=== PATIENT | female | born 1975 | race Caucasian/White ===

== ENCOUNTER 2021-04-13 23:57 | Emergency (ER) | payer OTHER ==
[~2021-04-13] VITALS: Ht 157.5 cm; Wt 75.0 kg
--- NOTE | 2021-04-14 00:18 | PHYS DOC ---
Past History Past Medical History: Anxiety, Depression (PRAFUL VALENCIA MD) General Adult EDM: Chief Complaint: ANXIETY/PANIC ATTACK HPI: HPI: Patient is a 45-year-old female who presents to the emergency department today for an anxiety attack that occurred this evening. Patient reports that her sons got into a verbal argument and that started causing her to panic. Patient reports that she felt very panicked and was hyperventilating and then started having tingling in her hands and cramping of her left hand. Patient reports that she does not take anything for anxiety at home. Patient currently takes methadone for opioid abuse. (JUANA GROVES APRN) HPI: .. " I am having some .. anxiety..."" My too sons were arguing of each other than this caused by a lot of anxiety..." Ms. lakesha Barnes is a 45-year-old female that presents to the emergency department with complaints of anxiety and hyperventilating. Patient came anxious but her 2 sons were argued of each other. Patient symptoms have resolved in the emergency department shortly after arrival. Refused ABG. Refused further work-up. Patient is a discharge home with follow-up with primary care. (PRAFUL VALENCIA MD) Review of Systems: Review of Systems: Constitutional: negative unless reported in HPI Eyes: negative unless reported in HPI HENT: negative unless reported in HPI Respiratory: negative unless reported in HPI Cardiovascular: negative unless reported in HPI GI: negative unless reported in HPI : negative unless reported in HPI Musculoskeletal: negative unless reported in HPI Integument: negative unless reported in HPI Neurologic: negative unless reported in HPI Endocrine: negative unless reported in HPI Lymphatic: negative unless reported in HPI Psychiatric: negative unless reported in HPI (JUANA GROVES APRN) Review of Systems: Review of systems negative except for episode of hand cramping and dyspnea (PRAFUL VALENCIA MD) Family History: Family History: Noncontributory (PRAFUL VALENCIA MD) Current Medications: Current Meds: See nursing for home meds (PRAFUL VALENCIA MD) Allergies: Allergies: No known drug allergies (PRAFUL VALENCIA MD) Physical Exam: PE: Constitutional: Well developed, well nourished, no acute distress, non-toxic appearance. [] HENT: Normocephalic, atraumatic, bilateral external ears normal, oropharynx moist, no oral exudates, nose normal. [] Eyes: PERRL, EOMI, conjunctiva normal, no discharge. [] Neck: Normal range of motion, no stridor Cardiovascular: Normal peripheral perfusion Lungs & Thorax: Bilateral breath sounds clear to auscultation, tachypneic [] Abdomen: Soft and flat Skin: Warm, dry, no erythema, no rash. [] Back: Normal range of motion Extremities: No tenderness, no cyanosis, no clubbing, ROM intact, no edema. []. Cramping sensation in left hand neuro intact Neurologic: Alert and oriented X 3, normal motor function, normal sensory function, no focal deficits noted. [] Psychologic: Anxious (JUANA GROVES APRN) PE: As per nurse practitioner (PRAFUL VALENCIA MD) EKG: EKG: [] (JUANA GROVES APRN) Radiology/Procedures: Radiology/Procedures: [] (JUANA GROVES APRN) Heart Score: C/O Chest Pain: N/A Risk Factors: Risk Factors: DM, Current or recent (<one month) smoker, HTN, HLP, family history of CAD, obesity. Risk Scores: Score 0 - 3: 2.5% MACE over next 6 weeks - Discharge Home Score 4 - 6: 20.3% MACE over next 6 weeks - Admit for Clinical Observation Score 7 - 10: 72.7% MACE over next 6 weeks - Early Invasive Strategies (JUANA GROVES APRN) Course & Med Decision Making: Course & Med Decision Making Pertinent Labs and Imaging studies reviewed. (See chart for details) Patient presents to the emergency department for an anxiety attack. Patient does not take anything at home for anxiety but reports that she started feeling anxious and panicked and hyperventilating after her sons got into a verbal argument. Patient was treated with Ativan. She refused ABG. Patient reports improvement in her symptoms following treatment. Physician involved in patient care. I discussed with patient all findings as well as the need to follow-up with PCP for further evaluation and treatment or return to the ER if any new or worsening symptoms. Strict return precautions were also discussed at length. Patient voiced understanding and agreement with the plan. Patient is hemodynamically stable at the time of disposition. (JUANA GROVES APRN) Course & Med Decision Making Patient encouraged a similar safe. Patient to follow-up primary care. Patient return if any concerns. Impression: 1. Anxiety and panic attack 2. Hyperventilation (PRAFUL VALENCIA MD) Dragon Disclaimer: Dragon Disclaimer: This electronic medical record was generated, in whole or in part, using a voice recognition dictation system. (JUANA GROVES APRN) Departure Departure: Referrals: PCP,NO (PCP) Dragon Disclaimer This chart was dictated in whole or in part using Voice Recognition software in a busy, high-work load, and often noisy Emergency Department environment. It may contain unintended and wholly unrecognized errors or omissions. (PRAFUL VALENCIA MD) Dragon Disclaimer This chart was dictated in whole or in part using Voice Recognition software in a busy, high-work load, and often noisy Emergency Department environment. It may contain unintended and wholly unrecognized errors or omissions. (PRAFUL VALENCIA MD) Attending Signature Attending Signature I have participated in the care of this patient and I have reviewed and agree with all pertinent clinical information above including history, exam, and recommendations. (PRAFUL VALENCIA MD) JUANA GROVES APRN Apr 14, 2021 00:18 PRAFUL VALENCIA MD Apr 14, 2021 00:21
[2021-04-14] MEDS ORDERED: LORazepam 1 MG TABLET ONE (00:22)
[2021-04-14] MEDS: LORazepam 1 MG TABLET PO ONE (00:26)
[2021-04-14 00:39] VITALS: BP 131/79
== END 2021-04-14 00:54 | disposition home or self-care (01) ==
LOC: ER 23:57
DX: F41.9 Anxiety disorder, unspecified (principal); R06.4 Hyperventilation; F32.9 Major depressive disorder, single episode, unspecified
CPT/HCPCS: 99283